=== PATIENT | female | born 1970 | race Caucasian/White ===

== ENCOUNTER 2017-04-03 01:15 | Emergency (ER) | payer OTHER | END 2017-04-03 02:02 | disposition home or self-care (01) | LOC: FER 01:15 | DX: S01.112A Laceration without foreign body of left eyelid and periocular area, initial encounter (principal); E78.5 Hyperlipidemia, unspecified; Z79.899 Other long term (current) drug therapy; W17.89XA Other fall from one level to another, initial encounter; Y92.009 Unspecified place in unspecified non-institutional (private) residence as the place of occurrence of the external cause ==

== ENCOUNTER 2021-03-28 12:38 | Emergency (ER) | payer OTHER ==
[~2021-03-28 12:38] MED LIST: ASPIRIN EC81 MG PO; CYMBALTA 30MG C30 MG PO; FLEXERIL10 MG PO; HCTZ12.5 MG PO; LIPITOR10 MG PO; MEDROL 4MG DOSEP4 MG PO; MELOXICAM15 MG PO; NEURONTIN400 MG PO; NEURONTIN800 MG PO; PERCOCET 5-3251 EACH PO; PERCOCET 7.5/321 TAB PO; VOLTAREN **OUT75 MG PO
[2021-03-28 15:16] LABS: BASOPHIL 0.2 % (0-2); EOSINOPHIL 0.3 % (0-5); HCT 38.3 % (37.0-47.0); LYMPHOCYTE 5.8 % (15-48); MCH 30.3 pg (25.0-31.0); MCHC 33.9 g/dL (32.0-36.0); MCV 89.3 fL (78.0-100.0); MONOCYTE 3.2 % (0-12); MPV 9.3 fL (6.0-9.5); NEUTROPHIL 89.6 % (41-80); NRBC 0; PLT 230 K/uL (150-400); RBC 4.29 M/uL (4.20-5.40); RDW 13.2 % (11.5-14.0); WBC 13.2 K/uL (4.0-10.5)
[2021-03-28 15:33] LABS: BUN/CREAT RATIO (CALC) 13.8 RATIO; CREATININE 0.94 mg/dL (0.51-0.95); POTASSIUM 3.7 mmol/L (3.5-5.1)
[2021-03-28] MEDS ORDERED: BACTRIM DS TAB1 EACH PO (16:46)
[2021-03-28] MEDS ORDERED: ANTIVERT25 MG PO (16:46)
== END 2021-03-28 16:55 | disposition home or self-care (01) ==
LOC: FER 12:38
PROVIDERS: Nurse Practitioner Family
DX: H81.10 Benign paroxysmal vertigo, unspecified ear (principal); L03.116 Cellulitis of left lower limb
CPT/HCPCS: 36415; 70450; 80048; 85025; J1885; J2405; J7030

== ENCOUNTER 2021-03-30 16:53 | Inpatient (IN) | payer OTHER ==
[~2021-03-30] VITALS: Ht 162.6 cm; Wt 121.8 kg
[~2021-03-30 16:53] MED LIST changes: +ANTIVERT25 MG PO; +BACTRIM DS TAB1 EACH PO
[2021-03-30 18:02] LABS: BASOPHIL 0.3 % (0-2); EOSINOPHIL 1.7 % (0-5); HCT 33.9 % (37.0-47.0); HGB 11.4 g/dl (12.5-16.0); LYMPHOCYTE 15.8 % (15-48); MCH 29.5 pg (25.0-31.0); MCHC 33.6 g/dL (32.0-36.0); MCV 87.8 fL (78.0-100.0); MONOCYTE 5.4 % (0-12); MPV 9.2 fL (6.0-9.5); NEUTROPHIL 76.3 % (41-80); NRBC 0; PLT 180 K/uL (150-400); RBC 3.86 M/uL (4.20-5.40); RDW 13.2 % (11.5-14.0); WBC 9.3 K/uL (4.0-10.5)
[2021-03-30 18:15] LABS: ALBUMIN 2.9 g/dL (3.4-5.0); BILIRUBIN - TOTAL 0.2 mg/dL (0.2-1.0); BUN/CREAT RATIO (CALC) 15.9 RATIO; CREATININE 0.82 mg/dL (0.51-0.95); GLOBULIN (CALCULATION) 4.7 g/dL; POTASSIUM 3.1 mmol/L (3.5-5.1); TOTAL PROTEIN 7.6 g/dL (6.4-8.2)
[2021-03-30] MEDS ORDERED: PERCOCET 7.5/321 TAB PO (23:38)
[2021-03-31 06:18] LABS: BASOPHIL 0.2 % (0-2); EOSINOPHIL 2.7 % (0-5); HCT 34.2 % (37.0-47.0); HGB 11.2 g/dl (12.5-16.0); LYMPHOCYTE 18.1 % (15-48); MCH 29.6 pg (25.0-31.0); MCHC 32.7 g/dL (32.0-36.0); MCV 90.2 fL (78.0-100.0); MONOCYTE 5.9 % (0-12); MPV 9.6 fL (6.0-9.5); NEUTROPHIL 72.7 % (41-80); NRBC 0; PLT 196 K/uL (150-400); RBC 3.79 M/uL (4.20-5.40); RDW 13.4 % (11.5-14.0); WBC 8.3 K/uL (4.0-10.5)
[2021-03-31 06:59] LABS: BUN/CREAT RATIO (CALC) 12.9 RATIO; CREATININE 0.85 mg/dL (0.51-0.95); POTASSIUM 3.8 mmol/L (3.5-5.1)
--- NOTE | 2021-03-31 13:10 | NUR ---
[facility] PT. TO DETERMINE IF PT. WANTS OUPT. INFUSION FOR IV ABX OR HH. PT. HAS CHOSEN TO COME TO [facility] FOR HER OUTPT INFUSION FOR IV ABX. ADVISED HER NURSE, ROB AND DR. LUIS OF PT. CHOICE.
--- NOTE | 2021-03-31 13:11 | NUR ---
PT. IS TO D/C TODAY. SENT REQUEST TO [facility] FOR O2 @ 6 L[address]. PER DR. LUIS NO HH WILL BE NEEDED. ADVISED NURSE ROB AND DR. LUIS O2 ORDERED.
--- NOTE | 2021-04-01 11:28 | NUR ---
Order received for PICC line placement. Risks and benefits explained. Consent was signed. Patient's left upper arm basilic vein visualized using the [employer] Site 6 Ultra machine. Patient then prepped and draped in sterile fashion. The area was cleansed with chloraprep. The area was numbed with 1ml of 1% lidecaine. A 21 gauge needle was used. Good bloodreturn noted. The guide wire threated easily. The needle was removed and the sheath was placed over the wire. The wire was then removed and a cap was placed on the end. The patient was measured for the Picc line placement. The PICC was trimmed at 48cm and flushed. The introducer was removed and the PICC catheter was guided into position. The sheath was peeled back. A sterile biopatch was placed at the insertion site. The statlock was placed on. A sterile tegaderm was placed over the PICC line. A stat portable chest x-ray was obtained. Per Dr. Pulliam, the PICC line is in the svc. The stylet was removed and a clear cap was flushed and placed at the end. Patient has a 4 serbian single lumen power PICC. Trimmed at 48cm, insertion 1cm, biceps 37.5cm. Good bloodreturn noted. Patient tolerated procedure well. Report given to Lashay Arizmendi RN on med-surg.
== END 2021-04-01 11:44 | disposition home or self-care (01) | DRG 603 ==
LOC: FER 16:53 → FMS 22:17
PROVIDERS: Internal Medicine; Nurse Practitioner; ADMIT Internal Medicine
PROC: 02HV33Z Insertion of Infusion Device into Superior Vena Cava, Percutaneous Approach (ICD-10-PCS; principal; 2021-04-01)
DX: L03.116 Cellulitis of left lower limb (principal); E87.6 Hypokalemia; G89.29 Other chronic pain; Z20.822 Contact with and (suspected) exposure to COVID-19; F17.210 Nicotine dependence, cigarettes, uncomplicated; M54.5 Low back pain; M79.7 Fibromyalgia; F32.9 Major depressive disorder, single episode, unspecified; G47.30 Sleep apnea, unspecified; Z79.899 Other long term (current) drug therapy; Z90.710 Acquired absence of both cervix and uterus; Z79.890 Hormone replacement therapy; Z99.81 Dependence on supplemental oxygen; Z90.89 Acquired absence of other organs
CPT/HCPCS: 36415; 70450; 71045; 73560; 80048; 80053; 84145; 85025; 86140; 93971; C1751; J0696; J0878; J1642; J1650; J1885; J2405; J2543; J3370; J7030; J7040; J7050; U0002